=== PATIENT | female | born 1985 | race African-American/Black ===

== ENCOUNTER 2022-09-16 09:33 | Emergency (ER) | payer SELFPAY ==
[2022-09-16] MEDS ORDERED: Acetaminophen 500 MG TAB ONE (09:55)
[2022-09-16] MEDS ORDERED: Ketorolac Tromethamine 30 MG/ML VIAL ONE (12:20)
== END 2022-09-16 10:20 | disposition home or self-care (01) ==
LOC: CSHERS 09:33
DX: M79.671 Pain in right foot (principal)
CPT/HCPCS: 99283; J1885

== ENCOUNTER 2023-02-20 20:42 | Emergency (ER) | payer MEDICAID, SELFPAY ==
[2023-02-20] MEDS ORDERED: Ketorolac Tromethamine 30 MG/ML VIAL ONE (23:10)
== END 2023-02-20 23:14 | disposition home or self-care (01) ==
LOC: CSHERS 20:42
DX: K05.10 Chronic gingivitis, plaque induced (principal); K02.9 Dental caries, unspecified; F17.210 Nicotine dependence, cigarettes, uncomplicated
CPT/HCPCS: 96372; 99282; J1885